=== PATIENT | female | born 1970 | race Caucasian/White ===

== ENCOUNTER 2017-03-24 20:27 | Emergency (ER) | payer MEDICAID ==
[~2017-03-24] VITALS: Ht 170.2 cm; Wt 82.0 kg
[~2017-03-24 20:27] MED LIST: INSU100V8 SQ; METF10002 PO
[2017-03-24] MEDS ORDERED: HYDROmorphone 1 MG/ML, 1ML ONE (21:40)
[2017-03-24] MEDS ORDERED: KETOROLAC 30 MG/1 ML ONE (21:40)
[2017-03-24] MEDS ORDERED: KETOROLAC 30 MG/1 ML IM ONE (22:00)
[2017-03-24] MEDS ORDERED: HYDROmorphone 1 MG/ML, 1ML IM ONE (22:00)
[2017-03-24 22:35] VITALS: BP 140/83
== END 2017-03-24 22:37 | disposition home or self-care (01) ==
LOC: ED 22:00
DX: S16.1XXA Strain of muscle, fascia and tendon at neck level, initial encounter (principal); M54.12 Radiculopathy, cervical region; F17.200 Nicotine dependence, unspecified, uncomplicated; X58.XXXA Exposure to other specified factors, initial encounter; Y93.89 Activity, other specified; Y92.89 Other specified places as the place of occurrence of the external cause; Y99.8 Other external cause status
CPT/HCPCS: 72050; 96372; 99284; J1170; J1885; J7512